=== PATIENT | male | born 1940 | race Caucasian/White ===

== ENCOUNTER → 2023-03-22 | Outpatient (CLI) | payer MEDICARE ==
[~2023-03-22] MED LIST: ASPI-1197 PO; ATEN25TA PO; BUDE10.2 IH; FISH1CAP50 PO; GLUCOSAMINE 1,1 EACH PO; HYDR500C2 PO; IOHEXOL 350 MG/ML 100ML INFUS..BTL IV ONE; MULT-1192 PO; POTA2TAB18 PO; SAW450CA7 PO; TAMS0.4C32 PO; TIOT18CA3 IH
== END | disposition home or self-care (01) ==
LOC: RAH 16:13
PROVIDERS: ATTEND Urology
DX: N28.1 Cyst of kidney, acquired (principal); M47.815 Spondylosis without myelopathy or radiculopathy, thoracolumbar region; K57.90 Diverticulosis of intestine, part unspecified, without perforation or abscess without bleeding; I70.90 Unspecified atherosclerosis; R31.0 Gross hematuria
CPT/HCPCS: 74178; Q9967